=== PATIENT | male | born 1985 | race Caucasian/White ===

== ENCOUNTER → 2018-06-06 | Outpatient (REF) | payer BC ==
[~2018-06-06] MED LIST: NORC1TAB7 PO
[2018-06-06 13:28] LABS: BASO # 0.1 10^3/uL (0.0-0.2); BASO % 1.1 % (0.0-1.0); EOS # 0.3 10^3/uL (0.0-0.50); HEMATOCRIT 44.7 % (42.0-52.0); HEMOGLOBIN 14.9 g/dl (13.5-17.5); LYMPH # 3.6 10^3/uL (1.5-4.5); LYMPH % 42.6 % (24.0-44.0); MEAN CORPUSCULAR HEMOGLOBIN 29.6 pg (27.0-33.0); MEAN CORPUSCULAR HGB CONC 33.3 g/dl (32.0-36.5); MEAN CORPUSCULAR VOLUME 88.7 fl (80.0-96.0); MONO # 0.7 10^3/uL (0.0-0.8); MONO % 8.1 % (0.0-5.0); NEUTROPHILS # 3.7 10^3/uL (1.8-7.7); NEUTROPHILS % 43.8 % (36.0-66.0); PLATELET COUNT, AUTOMATED 386 10^3/uL (150-450); RED BLOOD COUNT 5.04 10^6/uL (4.30-6.10); WHITE BLOOD COUNT 8.5 10^3/uL (4.0-10.0)
== END ==
LOC: M LABDRAW1 12:08
PROVIDERS: ATTEND Physician Assistant
DX: M25.571 Pain in right ankle and joints of right foot (principal)

== ENCOUNTER → 2018-10-17 | Outpatient (REF) | payer BC | LOC: M SMT 14:07 | PROVIDERS: ATTEND Urology | DX: Z30.2 Encounter for sterilization (principal) ==

== ENCOUNTER → 2019-10-30 | Outpatient (CLI) | payer BC ==
[~2019-10-30] MED LIST changes: +LISI10TA4 PO
== END ==
LOC: M LABSMTC 11:56
PROVIDERS: ATTEND Anesthesiology
DX: Z01.812 Encounter for preprocedural laboratory examination (principal); Z20.828 Contact with and (suspected) exposure to other viral communicable diseases
CPT/HCPCS: C9803; U0003

== ENCOUNTER 2019-11-04 10:10 | Day surgery (SDC) | payer BC ==
[~2019-11-04] VITALS: Ht 177.8 cm; Wt 152.4 kg
[~2019-11-04 10:10] MED LIST changes: +ACETAMINOPHEN 1000MG 100ML IV BTL (OFIRMEV) (J0131 PER 10MG) As Ordered ONE; +LIDOCAINE 2% 100MG/5ML SDV (FOR ANES.) As Ordered ONE; +LR 1,000 ML IV ONE; +MIDAZOLAM INJ 2MG/2ML VIAL (J2250 PER 1MG) As Ordered ONE; +ONDANSETRON 4MG/2ML VIAL As Ordered ONE; +PHENYLephrine HCL 500 MCG/5 ML (100MCG/ML) SYRINGE (J2370) As Ordered ONE; +ROCURONIUM BROMIDE 50 MG/5 ML VIAL As Ordered ONE; +SUGAMMADEX SODIUM 500 MG/5 ML VIAL (BRIDION) As Ordered ONE; +ceFAZolin SOD 2 GM in IV 1 EA IV ONE; +dexameTHASONE 4 MG/ML 1ML VIAL (J1100 PER 1MG) As Ordered ONE; +ePHEDrine SULFATE 25 MG/5 ML(5MG/ML) SYRINGE As Ordered ONE; +fentaNYL 250 MCG/5 ML INJECTION (J3010) As Ordered ONE; +propofoL 200 MG/20 ML VIAL As Ordered ONE
[2019-11-04] MEDS ORDERED: ceFAZolin 2 GM/D5W 50 ML IV BAG (J0690 PER 500MG) As Ordered ONE (10:39)
[2019-11-04] MEDS ORDERED: BUPIVACAINE/EPIN 0.25% 30 ML VIAL As Ordered ONE (13:19)
[2019-11-04] MEDS ORDERED: propofoL 200 MG/20 ML VIAL As Ordered ONE (14:06)
[2019-11-04] MEDS ORDERED: ROCURONIUM BROMIDE 50 MG/5 ML VIAL As Ordered ONE (14:06)
[2019-11-04] MEDS ORDERED: GLYCOPYRROLATE INJ 0.2 MG/ML 2 ML VIAL As Ordered ONE (14:25)
[2019-11-04] MEDS ORDERED: LIDOCAINE 2% 100MG/5ML SDV (FOR ANES.) As Ordered ONE (14:26)
[2019-11-04] MEDS ORDERED: LR 1,000 ML IV SCH (15:30)
[2019-11-04] MEDS ORDERED: fentaNYL 100 MCG/2 ML INJECTION (J3010) IV PRN (15:30)
[2019-11-04] MEDS ORDERED: ONDANSETRON 4MG/2ML VIAL IV PRN (15:30)
[2019-11-04] MEDS ORDERED: oxyCODONE 5MG TAB PO PRN (15:30)
[2019-11-04] MEDS ORDERED: INFLUENZA QUADRIVALENT PF VACCINE 0.5ML SYRINGE IM ONE (15:45)
[2019-11-04 16:25] VITALS: BP 157/74
[2019-11-04] MEDS ORDERED: NORCO, ANEXSIA 5/325MG TABLET (HYDROcodone/ACETAMINOPHEN) PO PRN (16:30)
--- NOTE | 2019-11-18 09:33 | RO ---
DATE OF OPERATION: 11/04/19 PREOPERATIVE DIAGNOSIS: Right inguinal hernia. POSTOPERATIVE DIAGNOSIS: Right inguinal hernia. PROCEDURE: Robotic right inguinal hernia repair. SURGEON: Aubrey Ford DO [place] WORKER: Neida Oropeza ANESTHESIA: General ESTIMATED BLOOD LOSS: 5. COMPLICATIONS: None. INDICATIONS FOR PROCEDURE: The patient is a 34-year-old male, presents with right groin hernia. Recommendation was to proceed with robotic repair. Risks and benefits of the procedure are not limited to, but include bleeding, infection, hernia formation, hernia recurrence, damage to surrounding structures and need for further surgery were discussed in detail with the patient and informed consent was obtained and procedure was planned. PROCEDURE: The patient was brought back to operating room 7. After sufficient sedation, the abdomen was sterilely prepped and draped. Next time out was done to confirm proper patient and proper procedure. Following that, an 8 mm incision was made in the left upper quadrant, a Veress needle was inserted and the abdomen was insufflated to 15 mmHg. The Veress needle was then removed. Two more 8 mm ports were placed across the right upper abdomen. The patient was placed in reverse Trendelenburg position. The groin was examined. There was a large direct defect identified on the right side. The robot was connected to the ports. Next, from the console, large curved incision was made into the peritoneum in the right groin. Preperitoneal space was dissected free, medially, laterally and then circumferentially around the cord structures. Once that was completed the hernia sac that was in the direct space was dissected free. There was a large volume of preperitoneal fat that was stuck down in this area. Once it was all completely reduced the pubic symphysis was identified. The defect was closed primarily with 2-0 V-Loc suture, about 90% of the way, all the way over until the inferior epigastric vessel was reached. Once that was done Vurb 3D Max light large mesh was placed into the right preperitoneal space, sutured to the pubic symphysis using a 2-0 Vicryl suture. All of this preperitoneal fat that was dissected free from the hernia sac was then placed on top of the mesh. The mesh was tucked down deep behind it. The mesh was then laid out flat over top of the inguinal canal and cord structures. The peritoneum was then closed back in place using running 2-0 V-loc suture. Once this was completed the abdomen was desufflated. Skin incisions were closed with 4-0 Vicryl subcuticular sutures. The abdomen was clean and dried. Steri-Strips, 4 x 4 and tape were applied. MTDD
== END 2019-11-04 16:30 | disposition home or self-care (01) ==
LOC: M SDC 10:10
PROVIDERS: ATTEND Surgery
DX: K40.90 Unilateral inguinal hernia, without obstruction or gangrene, not specified as recurrent (principal); I10 Essential (primary) hypertension; Z79.899 Other long term (current) drug therapy
CPT/HCPCS: 49650; C1781; J0131; J0690; J1100; J2250; J2370; J2405; J3010

== ENCOUNTER → 2021-07-06 | Outpatient (REF) | payer BC ==
[~2021-07-06] MED LIST changes: -ACETAMINOPHEN 1000MG 100ML IV BTL (OFIRMEV) (J0131 PER 10MG) As Ordered ONE; -LIDOCAINE 2% 100MG/5ML SDV (FOR ANES.) As Ordered ONE; +LISI10TA22 PO; -LISI10TA4 PO; -LR 1,000 ML IV ONE; -MIDAZOLAM INJ 2MG/2ML VIAL (J2250 PER 1MG) As Ordered ONE; -ONDANSETRON 4MG/2ML VIAL As Ordered ONE; -PHENYLephrine HCL 500 MCG/5 ML (100MCG/ML) SYRINGE (J2370) As Ordered ONE; -ROCURONIUM BROMIDE 50 MG/5 ML VIAL As Ordered ONE; -SUGAMMADEX SODIUM 500 MG/5 ML VIAL (BRIDION) As Ordered ONE; -ceFAZolin SOD 2 GM in IV 1 EA IV ONE; -dexameTHASONE 4 MG/ML 1ML VIAL (J1100 PER 1MG) As Ordered ONE; -ePHEDrine SULFATE 25 MG/5 ML(5MG/ML) SYRINGE As Ordered ONE; -fentaNYL 250 MCG/5 ML INJECTION (J3010) As Ordered ONE; -propofoL 200 MG/20 ML VIAL As Ordered ONE
[2021-07-08 08:10] LABS: LDL DIRECT 35 mg/dL (0-99)
== END ==
LOC: M LAB REF 10:20
PROVIDERS: ATTEND Internal Medicine
DX: E78.49 Other hyperlipidemia (principal)

== ENCOUNTER → 2021-07-20 | Outpatient (CLI) | payer BC | LOC: M PLAIMG 10:48 | PROVIDERS: ATTEND Physician Assistant | DX: M19.072 Primary osteoarthritis, left ankle and foot (principal); M72.2 Plantar fascial fibromatosis ==

== ENCOUNTER → 2021-08-06 | Outpatient (REF) | payer BC ==
[2021-08-08 08:12] LABS: LDL DIRECT 51 mg/dL (0-99)
== END ==
LOC: M LAB REF 16:11
PROVIDERS: ATTEND Internal Medicine
DX: E78.1 Pure hyperglyceridemia (principal)

== ENCOUNTER → 2022-03-17 | Outpatient (CLI) | payer BC ==
[~2022-03-17] MED LIST changes: +AMLO1TAB24 PO; +AMPH1CAP14 PO; +OLME20TA2 PO; +SEMA1PEN2 SC; +SEMA2PEN SQ; +SPIR-10 PO
== END ==
LOC: M LABSMTC 10:30
PROVIDERS: ATTEND Anesthesiology
DX: Z01.818 Encounter for other preprocedural examination (principal)

== ENCOUNTER 2022-03-18 08:30 | Day surgery (SDC) | payer BC ==
[~2022-03-18] VITALS: Ht 180.3 cm; Wt 138.3 kg
[~2022-03-18 08:30] MED LIST changes: +NS 1,000 ML IV ONE
[2022-03-18] MEDS ORDERED: propofoL 200 MG/20 ML VIAL As Ordered ONE ×2 (08:50→10:05)
[2022-03-18] MEDS ORDERED: LIDOCAINE 2% 100MG/5ML SDV (FOR ANES.) As Ordered ONE (08:50)
[2022-03-18 10:45] VITALS: BP 136/99
== END 2022-03-18 10:56 | disposition home or self-care (01) ==
LOC: M OPP 08:30
PROVIDERS: ATTEND Internal Medicine Gastroenterology
DX: Z12.11 Encounter for screening for malignant neoplasm of colon (principal); Z80.0 Family history of malignant neoplasm of digestive organs; D12.6 Benign neoplasm of colon, unspecified; K64.4 Residual hemorrhoidal skin tags; K64.8 Other hemorrhoids; Q43.8 Other specified congenital malformations of intestine; Z79.899 Other long term (current) drug therapy; G47.33 Obstructive sleep apnea (adult) (pediatric); I10 Essential (primary) hypertension; Z87.891 Personal history of nicotine dependence

== ENCOUNTER → 2022-06-06 | Outpatient (REF) | payer BC ==
[~2022-06-06] MED LIST changes: -NS 1,000 ML IV ONE
[2022-06-08 08:12] LABS: LDL DIRECT 47 mg/dL (0-99)
== END ==
LOC: M LAB REF 16:18
PROVIDERS: ATTEND Internal Medicine
DX: E78.1 Pure hyperglyceridemia (principal)

== ENCOUNTER 2022-12-23 06:54 | Day surgery (SDC) | payer BC ==
[~2022-12-23] VITALS: Ht 180.3 cm; Wt 149.4 kg
[~2022-12-23 06:54] MED LIST changes: +AMLO-602 PO; +NS 1,000 ML IV ONE; +PHEN30CA21 PO
[2022-12-23] MEDS ORDERED: SIMETHICONE 40MG/0.6ML DROPS 30ML As Ordered ONE (06:58)
[2022-12-23] MEDS ORDERED: propofoL 200 MG/20 ML VIAL As Ordered ONE (07:35)
[2022-12-23] MEDS ORDERED: LIDOCAINE 2% 100MG/5ML SDV (FOR ANES.) As Ordered ONE (07:39)
[2022-12-23] MEDS ORDERED: propofoL 500 MG/50 ML VIAL As Ordered ONE (07:41)
[2022-12-23 08:13] VITALS: TEMP 97.2
[2022-12-23 08:36] VITALS: BP 138/82; O2SAT 98
== END 2022-12-23 08:42 | disposition home or self-care (01) ==
LOC: M OPP 06:54
PROVIDERS: ATTEND Internal Medicine Gastroenterology
DX: Z12.11 Encounter for screening for malignant neoplasm of colon (principal); Z86.010 Personal history of colon polyps; Z80.0 Family history of malignant neoplasm of digestive organs; D12.6 Benign neoplasm of colon, unspecified; K64.4 Residual hemorrhoidal skin tags; K64.8 Other hemorrhoids; G47.30 Sleep apnea, unspecified; Z87.891 Personal history of nicotine dependence; Z79.51 Long term (current) use of inhaled steroids; Z79.85 Long-term (current) use of injectable non-insulin antidiabetic drugs; Z79.899 Other long term (current) drug therapy

== ENCOUNTER 2023-04-21 10:19 | Observation (INO) | payer BC ==
[~2023-04-21] VITALS: Ht 180.3 cm; Wt 155.6 kg
[2023-04-21] VITALS (7 sets, daily range): BP systolic 155–167; BP diastolic 85–100; TEMP 97.2–97.9; O2SAT 92–96
[~2023-04-21 10:19] MED LIST changes: -NS 1,000 ML IV ONE; +OLME1TAB7 PO; -OLME20TA2 PO; +OLME20TA50 PO
[2023-04-21] MEDS: LR 1,000 ML IV SCH (11:32)
[2023-04-21] MEDS ORDERED: fentaNYL 100 MCG/2 ML INJECTION As Ordered ONE (11:52)
[2023-04-21] MEDS ORDERED: MIDAZOLAM INJ 2MG/2ML VIAL As Ordered ONE (11:52)
[2023-04-21] MEDS ORDERED: propofoL 200 MG/20 ML VIAL As Ordered ONE (11:53)
[2023-04-21] MEDS ORDERED: ONDANSETRON 4MG 2ML VIAL As Ordered ONE (11:53)
[2023-04-21] MEDS ORDERED: LIDOCAINE 2% 100MG/5ML SDV (FOR ANES.) As Ordered ONE (11:53)
[2023-04-21] MEDS ORDERED: ROCURONIUM BROMIDE 50MG/5ML VIAL As Ordered ONE (11:53)
[2023-04-21] MEDS ORDERED: ACETAMINOPHEN 1000MG 100ML IV BAG As Ordered ONE (11:54)
[2023-04-21] MEDS ORDERED: IBUP200C25 PO (12:00)
[2023-04-21] MEDS ORDERED: HOME MED LIST COMPLETE! XX SCH (12:00)
[2023-04-21] MEDS ORDERED: OXYMETAZOLINE 0.05% NASAL SPRAY (AFRIN) As Ordered ONE (12:44)
[2023-04-21] MEDS ORDERED: SUGAMMADEX SODIUM 500 MG/5 ML VIAL (BRIDION) As Ordered ONE (13:33)
[2023-04-21] MEDS ORDERED: LABETALOL 100MG/20ML VIAL As Ordered ONE (13:37)
[2023-04-21] MEDS: LIDOCAINE W/EPINEPHRINE 1% 20ML VIAL As Ordered ONE (13:40)
[2023-04-21] MEDS ORDERED: dexmedeTOMIDine (4MCG/ML)200MCG/50ML BTL (PRECEDEX) As Ordered ONE (13:44)
[2023-04-21] MEDS ORDERED: ONDANSETRON 4MG 2ML VIAL IV PRN (14:35)
[2023-04-21] MEDS ORDERED: fentaNYL 100 MCG/2 ML INJECTION IV PRN (14:35)
[2023-04-21] MEDS: MORPHINE 2 MG/ML 1ML VIAL IV PRN (15:11)
[2023-04-21] MEDS: oxyCODONE 5MG TAB PO PRN (15:14)
[2023-04-21] MEDS: ACETAMINOPHEN TAB 650MG DOSE (2X325MG) PO PRN (18:25)
[2023-04-21] MEDS: hydroCHLOROthiazide 12.5 MG CAPSULE PO SCH (18:29)
[2023-04-21] MEDS: amLODIPine 5 MG TAB PO SCH (19:33)
[2023-04-21] MEDS: OLMESARTAN MEDOXOMIL 20 MG TAB (BENICAR) PO SCH (20:11)
[2023-04-22 03:00] VITALS: BP 154/85; TEMP 97.9; O2SAT 93
[2023-04-22] MEDS: MORPHINE 2 MG/ML 1ML VIAL IV PRN (03:09)
[2023-04-22 06:02] LABS: BASO % 0.2 % (0.0-1.0); HEMATOCRIT 43.9 % (42.0-52.0); HEMOGLOBIN 14.7 g/dl (13.5-17.5); LYMPH # 1.5 10^3/uL (1.5-5.0); MEAN CORPUSCULAR HEMOGLOBIN 29.8 pg (27.0-33.0); MEAN CORPUSCULAR HGB CONC 33.5 g/dl (32.0-36.5); MEAN CORPUSCULAR VOLUME 88.9 fl (80.0-96.0); MONO # 0.3 10^3/uL (0.0-0.8); NEUTROPHILS # 12.9 10^3/uL (1.5-8.5); NEUTROPHILS % 87.3 % (36.0-66.0); PLATELET COUNT, AUTOMATED 374 10^3/uL (150-450); RED BLOOD COUNT 4.94 10^6/uL (4.30-6.10); WHITE BLOOD COUNT 14.8 10^3/uL (4.0-10.0)
[2023-04-22 06:05] VITALS: O2SAT 92
[2023-04-22 06:25] LABS: BLOOD UREA NITROGEN 14 MG/DL (9-23); CALCIUM LEVEL 9.2 MG/DL (8.5-10.1); CARBON DIOXIDE LEVEL 28 MMOL/L (20-31); CHLORIDE LEVEL 102 MMOL/L (98-107); CREATININE FOR GFR 0.96 MG/DL (0.70-1.30); GLOMERULAR FILTRATION RATE > 60.0 (>60); GLUCOSE, FASTING 140 MG/DL (60-100); MAGNESIUM LEVEL 2.1 MG/DL (1.8-2.4); POTASSIUM SERUM 4.4 MMOL/L (3.5-5.1); SODIUM LEVEL 135 MMOL/L (136-145)
[2023-04-22 06:52] VITALS: BP 142/75; TEMP 98.2; O2SAT 93
[2023-04-22 08:18] VITALS: BP 165/93
[2023-04-22] MEDS ORDERED: OXYC1TAB23 PO (08:34)
[2023-04-22] MEDS: dexAMETHasone 2 MG TAB PO STA (09:55)
[2023-04-22] MEDS ORDERED: PERC5TAB12 PO (10:24)
[2023-04-22 11:02] VITALS: BP 140/82
== END 2023-04-22 11:51 | disposition home or self-care (01) ==
LOC: M SDC 10:19 → M RR INP 10:20 → M MSPAV 18:00
PROVIDERS: ADMIT Internal Medicine; ATTEND Internal Medicine
DX: J35.1 Hypertrophy of tonsils (principal); R06.83 Snoring; G47.33 Obstructive sleep apnea (adult) (pediatric); I10 Essential (primary) hypertension; E66.01 Morbid (severe) obesity due to excess calories; Z87.891 Personal history of nicotine dependence; E78.2 Mixed hyperlipidemia
CPT/HCPCS: 36415; 42145; 80048; 83735; 85025; 87635; 88302; 88305; 93005; 96374; 96375; 96376; J0131; J1100; J1920; J2250; J2405; J3010

== ENCOUNTER 2023-04-27 01:01 | Observation (INO) | payer BC ==
[~2023-04-27] VITALS: Ht 180.3 cm; Wt 149.1 kg
[2023-04-27] VITALS (10 sets, daily range): BP systolic 144–169; BP diastolic 60–107; TEMP 97–99.2; O2SAT 91–93
[~2023-04-27 01:01] MED LIST changes: +IBUP200C25 PO; +OXYC1TAB23 PO; +PERC5TAB12 PO
[2023-04-27] MEDS: NS 1,000 ML IV SCH (03:51)
[2023-04-27 04:06] LABS: BASO # 0.1 10^3/uL (0.0-0.2); BASO % 0.7 % (0.0-1.0); EOS # 0.3 10^3/uL (0.0-0.5); EOS % 1.9 % (0.0-3.0); HEMATOCRIT 45.2 % (42.0-52.0); HEMOGLOBIN 15.2 g/dl (13.5-17.5); LYMPH # 3.9 10^3/uL (1.5-5.0); LYMPH % 28.5 % (24.0-44.0); MEAN CORPUSCULAR HGB CONC 33.6 g/dl (32.0-36.5); MEAN CORPUSCULAR VOLUME 89.2 fl (80.0-96.0); MONO # 1.2 10^3/uL (0.0-0.8); MONO % 8.7 % (2.0-8.0); NEUTROPHILS # 8.1 10^3/uL (1.5-8.5); NEUTROPHILS % 59.7 % (36.0-66.0); PLATELET COUNT, AUTOMATED 407 10^3/uL (150-450); RED BLOOD COUNT 5.07 10^6/uL (4.30-6.10); WHITE BLOOD COUNT 13.6 10^3/uL (4.0-10.0)
[2023-04-27 04:19] LABS: INR 1.06; PARTIAL THROMBOPLASTIN TIME 30.9 SECONDS (24.8-34.2); PROTHROMBIN TIME 13.5 SECONDS (12.5-14.5)
[2023-04-27 05:22] LABS: BLOOD UREA NITROGEN 20 MG/DL (9-23); CALCIUM LEVEL 8.9 MG/DL (8.5-10.1); CARBON DIOXIDE LEVEL 24 MMOL/L (20-31); CHLORIDE LEVEL 106 MMOL/L (98-107); CREATININE FOR GFR 1.02 MG/DL (0.70-1.30); GLOMERULAR FILTRATION RATE > 60.0 (>60); GLUCOSE, FASTING 97 MG/DL (60-100); POTASSIUM SERUM 4.7 MMOL/L (3.5-5.1); SODIUM LEVEL 136 MMOL/L (136-145)
[2023-04-27] MEDS: dexAMETHasone 20MG/5ML VIAL IV ONE (06:34)
[2023-04-27] MEDS: LIDOCAINE W/EPINEPHRINE 1% 20ML VIAL As Ordered ONE (06:40)
[2023-04-27] MEDS ORDERED: LIDOCAINE 2% 100MG/5ML SDV (FOR ANES.) As Ordered ONE (06:45)
[2023-04-27] MEDS ORDERED: propofoL 200 MG/20 ML VIAL As Ordered ONE (06:45)
[2023-04-27] MEDS ORDERED: SUCCINYLCHOLINE 100MG/5ML SYRINGE As Ordered ONE (06:45)
[2023-04-27] MEDS ORDERED: MIDAZOLAM INJ 2MG/2ML VIAL As Ordered ONE (06:46)
[2023-04-27] MEDS ORDERED: fentaNYL 100 MCG/2 ML INJECTION As Ordered ONE (06:46)
[2023-04-27] MEDS ORDERED: HYDROmorphone HCL 2MG/ML 1ML VIAL As Ordered ONE (07:24)
[2023-04-27] MEDS ORDERED: PHENYLephrine 500MCG 5ML (100MCG/ML) SYRINGE As Ordered ONE (07:35)
[2023-04-27] MEDS: OXYMETAZOLINE 0.05% NASAL SPRAY (AFRIN) As Ordered ONE (07:40)
[2023-04-27] MEDS: CLINDAMYCIN 900MG/50ML PREMIX BAG As Ordered ONE (08:01)
[2023-04-27] MEDS ORDERED: LR 1,000 ML IV SCH (08:30)
[2023-04-27] MEDS ORDERED: ONDANSETRON 4MG 2ML VIAL IV PRN (08:30)
[2023-04-27] MEDS ORDERED: oxyCODONE 5MG TAB PO PRN (08:30)
[2023-04-27] MEDS ORDERED: fentaNYL 100 MCG/2 ML INJECTION IV PRN (08:30)
[2023-04-27] MEDS: HYDROMORPHONE HCL 0.5 MG/ 0.5 ML SYRINGE IV PRN (08:54)
[2023-04-27] MEDS: AUGMENTIN 875 MG TAB PO SCH (10:19)
[2023-04-27] MEDS: LACTOBACILLUS ACIDOPHILUS CAP (BACID) PO SCH (10:19)
[2023-04-27] MEDS ORDERED: PERCOCET PO (10:45)
[2023-04-27] MEDS ORDERED: HOME MED LIST COMPLETE! XX SCH (10:50)
[2023-04-27] MEDS: hydroCHLOROthiazide 12.5 MG CAPSULE PO SCH (12:28)
[2023-04-27] MEDS: amLODIPine 5 MG TAB PO SCH (12:28)
[2023-04-27] MEDS: PERCOCET 5MG/325MG TAB PO PRN (12:29)
[2023-04-27] MEDS: SPIRONOLACTONE 25 MG TAB PO SCH (12:30)
[2023-04-27] MEDS: OLMESARTAN MEDOXOMIL 20 MG TAB (BENICAR) PO SCH (12:50)
[2023-04-27] MEDS: ACETAMINOPHEN TAB 650MG DOSE (2X325MG) PO PRN (16:17)
[2023-04-28 02:00] VITALS: BP 155/98; TEMP 98.1; O2SAT 94
[2023-04-28 06:00] VITALS: BP 131/84; TEMP 97.9; O2SAT 92
[2023-04-28 06:39] LABS: BASO % 0.1 % (0.0-1.0); HEMATOCRIT 45.1 % (42.0-52.0); HEMOGLOBIN 15.2 g/dl (13.5-17.5); LYMPH # 2.1 10^3/uL (1.5-5.0); LYMPH % 13.7 % (24.0-44.0); MEAN CORPUSCULAR HEMOGLOBIN 29.6 pg (27.0-33.0); MEAN CORPUSCULAR HGB CONC 33.7 g/dl (32.0-36.5); MEAN CORPUSCULAR VOLUME 87.9 fl (80.0-96.0); MONO # 0.6 10^3/uL (0.0-0.8); MONO % 4.1 % (2.0-8.0); NEUTROPHILS # 12.6 10^3/uL (1.5-8.5); NEUTROPHILS % 81.5 % (36.0-66.0); PLATELET COUNT, AUTOMATED 445 10^3/uL (150-450); RED BLOOD COUNT 5.13 10^6/uL (4.30-6.10); WHITE BLOOD COUNT 15.4 10^3/uL (4.0-10.0)
[2023-04-28 07:07] LABS: BLOOD UREA NITROGEN 20 MG/DL (9-23); CALCIUM LEVEL 9.5 MG/DL (8.5-10.1); CARBON DIOXIDE LEVEL 26 MMOL/L (20-31); CHLORIDE LEVEL 103 MMOL/L (98-107); CREATININE FOR GFR 1.05 MG/DL (0.70-1.30); GLOMERULAR FILTRATION RATE > 60.0 (>60); GLUCOSE, FASTING 147 MG/DL (60-100); MAGNESIUM LEVEL 2.3 MG/DL (1.8-2.4); POTASSIUM SERUM 4.5 MMOL/L (3.5-5.1); SODIUM LEVEL 136 MMOL/L (136-145)
[2023-04-28 08:36] VITALS: BP 134/84
[2023-04-28] MEDS ORDERED: RISATAB3 PO (08:38)
[2023-04-28] MEDS ORDERED: AMOX875T2 PO (08:38)
[2023-04-28] MEDS ORDERED: PERCOCET PO ×2 (08:38→08:41)
[2023-04-28 10:00] VITALS: BP 140/60; TEMP 98.4; O2SAT 92
== END 2023-04-28 10:45 | disposition home or self-care (01) ==
LOC: M ED 01:01 → M SDC 01:02 → M RR INP 01:03 → M MSPAV 10:00
PROVIDERS: ADMIT Internal Medicine; ATTEND Internal Medicine
DX: J95.830 Postprocedural hemorrhage of a respiratory system organ or structure following a respiratory system procedure (principal); G47.33 Obstructive sleep apnea (adult) (pediatric); I10 Essential (primary) hypertension; E66.01 Morbid (severe) obesity due to excess calories; Z79.899 Other long term (current) drug therapy; Z79.2 Long term (current) use of antibiotics
CPT/HCPCS: 36415; 42962; 80048; 83735; 85025; 85610; 85730; 96361; 96374; 96376; 99284; J0330; J1100; J1170; J2250; J2371; J3010

== ENCOUNTER → 2023-08-29 | Outpatient (REF) | payer BC ==
[~2023-08-29] MED LIST changes: +AMOX875T2 PO; +PERCOCET PO; +RISATAB3 PO
== END ==
LOC: M LAB REF 13:14
PROVIDERS: ATTEND Internal Medicine
DX: R68.82 Decreased libido (principal)

== ENCOUNTER → 2023-09-12 | Outpatient (REF) | payer BC | LOC: M LAB REF 13:25 | PROVIDERS: ATTEND Internal Medicine | DX: R68.82 Decreased libido (principal) ==

== ENCOUNTER 2023-12-04 07:46 | Day surgery (SDC) | payer BC ==
[~2023-12-04] VITALS: Ht 180.3 cm; Wt 156.7 kg
[~2023-12-04 07:46] MED LIST changes: +AMPH1CAP16 PO; +TEST200I14 SC
[2023-12-04] MEDS ORDERED: MIDAZOLAM INJ 2MG/2ML VIAL As Ordered ONE (08:37)
[2023-12-04] MEDS ORDERED: ACETAMINOPHEN 1000MG 100ML IV BAG As Ordered ONE (08:38)
[2023-12-04] MEDS ORDERED: LIDOCAINE 2% 100MG/5ML SDV (FOR ANES.) As Ordered ONE (08:38)
[2023-12-04] MEDS ORDERED: propofoL 200 MG/20 ML VIAL As Ordered ONE (08:38)
[2023-12-04] MEDS ORDERED: fentaNYL 250 MCG/5 ML INJECTION As Ordered ONE (08:38)
[2023-12-04] MEDS ORDERED: ONDANSETRON 4MG 2ML VIAL As Ordered ONE (08:38)
[2023-12-04] MEDS ORDERED: KETOROLAC 60MG 2ML VIAL As Ordered ONE (08:38)
[2023-12-04] MEDS: LR 1,000 ML IV SCH (08:42)
[2023-12-04] MEDS ORDERED: ePHEDrine SULFATE 25 MG/5 ML(5MG/ML) SYRINGE As Ordered ONE (10:28)
[2023-12-04] MEDS ORDERED: oxyCODONE 5MG TAB PO PRN (11:00)
[2023-12-04] MEDS ORDERED: MORPHINE 2 MG/ML 1ML VIAL IV PRN (11:00)
[2023-12-04] MEDS ORDERED: fentaNYL 100 MCG/2 ML INJECTION IV PRN (11:00)
[2023-12-04] MEDS ORDERED: ONDANSETRON 4MG 2ML VIAL IV PRN (11:00)
[2023-12-04 12:32] VITALS: BP 149/81; TEMP 97.5; O2SAT 96
== END 2023-12-04 12:34 | disposition home or self-care (01) ==
LOC: M SDC 07:46
PROVIDERS: ATTEND Orthopaedic Surgery Hand Surgery
DX: G56.01 Carpal tunnel syndrome, right upper limb (principal); I10 Essential (primary) hypertension; E78.5 Hyperlipidemia, unspecified; K21.9 Gastro-esophageal reflux disease without esophagitis; F90.9 Attention-deficit hyperactivity disorder, unspecified type; Z87.891 Personal history of nicotine dependence; Z79.899 Other long term (current) drug therapy
CPT/HCPCS: 29848; J0131; J0665; J1100; J1885; J2250; J2405; J3010

== ENCOUNTER → 2024-03-13 | Outpatient (REF) | payer BC | LOC: M LAB REF 13:01 | PROVIDERS: ATTEND Internal Medicine | DX: E29.1 Testicular hypofunction (principal); R68.82 Decreased libido; N52.9 Male erectile dysfunction, unspecified ==

== ENCOUNTER → 2024-10-25 | Outpatient (REF) | payer BC | LOC: M LAB REF 11:37 | PROVIDERS: ATTEND Internal Medicine | DX: E29.1 Testicular hypofunction (principal) ==